=== PATIENT | male | born 1985 | race Caucasian/White ===

== ENCOUNTER 2016-07-06 23:44 | Emergency (ER) | payer OTHER ==
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
[2016-07-07 01:17] VITALS: BP 123/79
== END 2016-07-07 01:32 | disposition home or self-care (01) ==
LOC: ER 23:44
DX: T14.8 Other injury of unspecified body region (principal); M25.532 Pain in left wrist; M25.562 Pain in left knee; V49.9XXA Car occupant (driver) (passenger) injured in unspecified traffic accident, initial encounter; Y92.410 Unspecified street and highway as the place of occurrence of the external cause; Y99.0 Civilian activity done for income or pay
CPT/HCPCS: 99284